=== PATIENT | female | born 1950 | race Caucasian/White ===

== ENCOUNTER → 2021-09-15 | Outpatient (CLI) | payer OTHER ==
[~2021-09-15] MED LIST: ASPIR-LOW81 MG PO; BACTRIM DS TAB1 EACH PO; LIPITOR40 MG PO; MACROBID 100 M100 MG PO; PLAVIX 75 MG TA75 MG PO; TERBINAFINE HC250 MG PO
== END ==
LOC: MAMO 08-25 14:00 → EXRD 08-25 15:00 → MAMO 08:46 → EXRD 10:30
DX: Z12.31 Encounter for screening mammogram for malignant neoplasm of breast (principal); Z78.0 Asymptomatic menopausal state; M85.89 Other specified disorders of bone density and structure, multiple sites
CPT/HCPCS: 77063; 77067; 77080